=== PATIENT | male | born 1950 | race Caucasian/White ===

== ENCOUNTER → 2024-01-17 11:08 | Outpatient (REF) | payer MEDICARE, OTHER, SELFPAY | LOC: RCS 11:08 | PROVIDERS: ATTENDING PHYSICIAN Nuclear Medicine Nuclear Cardiology; FAMILY PHYSICIAN Physician Assistant Medical | DX: I48.0 Paroxysmal atrial fibrillation (principal); I10 Essential (primary) hypertension; R06.02 Shortness of breath | CPT/HCPCS: 93306; Q9957 ==

== ENCOUNTER → 2024-03-02 06:41 | Outpatient (REF) | payer MEDICARE, OTHER, SELFPAY ==
[2024-03-02 07:54] LABS: Blood Urea Nitrogen 20 mg/dl (9-20); Calcium 9.2 mg/dl (8.4-10.2); Carbon Dioxide 32 mmol/L (22-30); Chloride 102 mmol/L (98-107); Glucose 125 mg/dl (70-99); Sodium 140 mmol/L (135-145); eGFR > 60.00
== END ==
LOC: REG 06:41
PROVIDERS: ATTENDING PHYSICIAN Nuclear Medicine Nuclear Cardiology
DX: I48.0 Paroxysmal atrial fibrillation (principal)
CPT/HCPCS: 36415; 80048

== ENCOUNTER → 2024-06-25 06:19 | Outpatient (REF) | payer MEDICARE, OTHER, SELFPAY ==
[2024-06-25 08:16] LABS: ALT (SGPT) 18 U/L (0-50); AST (SGOT) 24 U/L (17-59); Albumin 4.1 g/dl (3.5-5.0); Alkaline Phosphatase 82 U/L (38-126); Blood Urea Nitrogen 20 mg/dl (9-20); Calcium 9.4 mg/dl (8.4-10.2); Carbon Dioxide 32 mmol/L (22-30); Chloride 97 mmol/L (98-107); Glucose 134 mg/dl (70-99); HDL Cholesterol 49 mg/dl; LDL Cholesterol, Calculated 95 mg/dl; Potassium 3.6 mmol/L (3.5-5.1); Sodium 139 mmol/L (135-145); Total Bilirubin 0.9 mg/dl (0.2-1.3); Total Cholesterol 171 mg/dl (50-199); Total Protein 6.7 g/dl (6.3-8.2); Triglyceride 136 mg/dl (10-149); Very Low Density Lipoprotein 27 mg/dl (0-30); eGFR > 60.00
== END ==
LOC: REG 06:19
PROVIDERS: ATTENDING PHYSICIAN Nuclear Medicine Nuclear Cardiology; FAMILY PHYSICIAN Physician Assistant Medical
DX: I10 Essential (primary) hypertension (principal); Z13.220 Encounter for screening for lipoid disorders
CPT/HCPCS: 36415; 80053; 80061

== ENCOUNTER → 2024-11-27 06:22 | Outpatient (REF) | payer MEDICARE, OTHER, SELFPAY ==
[2024-11-27 07:16] LABS: % Basophils 0.8 % (0-2); % Eosinophils 3.5 % (0-6); % Immature Granulocytes 0.3 % (0-0.5); % Lymphocytes 21.8 % (20.5-51.1); % Monocytes 12.9 % (1.7-9.3); % Neutrophils 60.7 % (42.2-75.2); Absolute Basophils 0.1 10^3/uL (0-0.2); Absolute Eosinophils 0.3 10^3/uL (0-0.7); Absolute Lymphocytes 1.6 10^3/uL (1.2-3.4); Absolute Neutrophils 4.5 10^3/uL (1.4-6.5); Hematocrit 48.4 % (39.0-52.0); Hemoglobin 16.3 g/dL (13.0-18.0); Mean Corp Hgb Conc. 33.7 g/dL (33.0-37.0); Mean Corpuscular Hgb 31.2 pg (27.0-31.0); Mean Corpuscular Volume 92.7 fL (80.0-94.0); Mean Platelet Volume 10.4 fL (7.4-10.4); Nucleated Red Blood Cells % 0 % (-); Platelet Count 244 10^3/uL (130-400); Red Blood Cell Count 5.22 10^6/uL (4.70-6.10); Red Cell Dist. Width 13.4 % (11.5-14.5); White Blood Cell Count 7.3 10^3/uL (4.8-10.8)
[2024-11-27 07:58] LABS: Free T4 1.06 ng/dl (0.78-2.19)
[2024-11-27 08:12] LABS: PSA, Total - Screen 3.09 ng/ml (0.0-4.0); TSH 4.83 uIU/ml (0.47-4.68)
[2024-11-27 08:34] LABS: Glycohemoglobin (HgbA1c) 6.3 % (4.0-5.6)
== END ==
LOC: REG 06:22
PROVIDERS: ATTENDING PHYSICIAN Physician Assistant Medical; OTHER PHYSICIAN Nuclear Medicine Nuclear Cardiology
DX: I10 Essential (primary) hypertension (principal); R73.01 Impaired fasting glucose; Z12.5 Encounter for screening for malignant neoplasm of prostate
CPT/HCPCS: 36415; 83036; 84439; 84443; 85025; G0103

== ENCOUNTER 2024-12-09 22:08 | Emergency (ER) | payer MEDICARE, OTHER, SELFPAY ==
[2024-12-09 22:15] VITALS: BP 164/104
[2024-12-10 01:16] VITALS: BP 150/90
[2024-12-10 03:46] VITALS: BP 148/88
--- NOTE | 2024-12-10 04:06 | ED.GENMED ---
History of Present Illness
General
Chief Complaint: Cough
Source: patient
Exam Limitations: none
Time Seen by Provider: 12/10/24 04:03
Nursing documentation reviewed up to this point in time: agreed with
History of Present Illness
History of Present Illness:
74 y/o male with a pmh of asthma, afib on xarelto, GERD, presents to the ER today with concerns of a cough for the past 3 days. He has associated post-nasal drip and intermittent shortness of breath. He has been using his albuterol inhaler at home
and claritin with minimal relief. He denies chest pain, nausea, vomiting, fevers, chills.
Past History
Past History
ED Past Medical History: Arrthythmia (Atrial fib), HTN and Other (Ulcers)
ED Past Surgical History: Cardiac (Ablation,) and Other (A. fib ablation, hernia repair)
Social History
Tobacco: Non-smoker
Alcohol: Occasional
Drug: None
Personal:
Living: with family
Review of Systems
Review of Systems
All Other Systems: ROS reviewed and negative except as documented in HPI and ROS
Phy Exam
Physical Exam
Physical Exam:
General: Patient is well appearing and in no acute distress; non-toxic
Skin: Warm and dry, no rashes or lesions
Head: Normocephalic, atraumatic
Eyes: Sclera non-icteric. EOMs intact.
Throat: No pharyngeal erythema, uvula midline
Cardiac: Regular rate and rhythm, no murmurs
Peripheral Vascular: No lower extremity swelling or edema
Pulm: Scattered wheezing heard bilaterally
Neuro: CN II-XII intact, no focal neurologic deficits.
Psychiatric: Appropriate mood and affect.
Course
Orders/Labs/Results
Orders:
Orders
12/09/24 22:18
EKG [Electrocardiogram (*1)] Urgent
Reason for Study: Shortness of Breath
EKG- Treatment ONCE
CR Chest - 2 Views Urgent
Comment:
Reason For Exam: Cough
12/10/24 04:17
Dexamethasone Sod Phosphate [Decadron] 10 mg IV NOW STA
Ipratropium/Albuterol Sulfate [Duoneb] 3 ml INH R NOW STA
12/10/24 04:18
COVID-19 Antigen Urgent
Source: Nasal Swab
Complete Blood Count/With Diff Urgent
Comprehensive Metabolic Panel Urgent
Influenza A+B Rapid Molecular Urgent
RYAN Source: Nasal Swab
Specimen Description:
Ipratropium/Albuterol Sulfate [Duoneb] 3 ml INH R NOW STA
12/10/24 05:23
pacemaker [Interrogate Pacemaker- Treatment] ONCE
Ipratropium/Albuterol Sulfate [Duoneb] 3 ml INH R NOW STA
Abnormal Lab Results
12/10/24
04:18
Absolute Lymphs (auto) 1.1 L 10^3/uL
(1.2-3.4)
Absolute Monos (auto) 1.3 H 10^3/uL
(0.1-0.6)
Immature Gran % 0.6 H %
(0-0.5)
Lymphocytes % 16.2 L %
(20.5-51.1)
Monocytes % 18.1 H %
(1.7-9.3)
Carbon Dioxide 33 H mmol/L
(22-30)
Glucose 145 H mg/dl
(70-99)
12/10/24 04:18
12/10/24 04:18
Vital Signs
Initial and Last Documented VS:
Initial Vital Signs
Temp Pulse Resp BP Pulse Ox
98.9 F 78 18 164/104 97
12/09/24 22:15 12/09/24 22:15 12/09/24 22:15 12/09/24 22:15 12/09/24 22:15
Last Documented Vital Signs
Temp Pulse Resp BP Pulse Ox
97.8 F 94 20 151/82 96
12/10/24 01:16 12/10/24 04:16 12/10/24 04:16 12/10/24 04:16 12/10/24 04:16
MDM/Problems Addressed
Differential Diagnosis Includes:
ddx include influenza, COVID-19, pneumonia, acute bronchitis, allergic rhinitis, asthma exacerbation
MDM/Problems Addressed:
74 y/o male with a pmh of asthma, afib on xarelto, GERD, presents to the ER today with concerns of a cough for the past 3 days. He has diffuse wheezing on exam. He tested positive for influenza b. His CXR shows no evidence of pneumonia. His symptoms
and lung sounds improved with duoneb treatments. He was given dose of decadron. He will be discharged on prednisone. Suspect asthma exacerbation secondary to influenza.
His ECG and telemetry did show PVCs. Pt does know he has a hx of this. They are asymptomatic. Pace maker eval negative for VT VF runs. Reviewed case with ER attending. Pt stable for discharge.
Chronic conditions affecting care:
asthma, afib
*Pulse Oximetry
Patient hypoxic: no
*EKG
Interpreted by ED Provider?: Yes
EKG Intrepretation Date: 12/10/24
Interpretation: abnormal
Comparison EKG: changes noted
Heart Rate: 80
Rate: normal
Rhythm: PVC's (atrial paced rhythm with frequent pvcs similar in appearance to prior ecgs)
*Critical Care Note
Total Time (30-74mins, 75-104mins- exclusive of procedures): Not Applicable
Data Reviewed
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
Source: patient
Patient Management
Escalation/DeEscalation of care consider admission/obs:
admit not indicated
ED Attending Note
-
Portions of this chart may have been created with voice recognition software.� Occasional wrong word or��sound alike� substitutions may have occurred due to the inherent limitations of voice recognition software.
Discharge Plan
Departure
Patient Disposition: Home (Routine Discharge)
Date of Disposition: 12/10/24
Time of Disposition: 06:27
Patient with high blood pressure during this ER visit?: Yes
Condition: Good
Discharge Problem:
Influenza B, Asthma exacerbation
Instructions: Flu in adults - Discharge instructions, Asthma in adults - Discharge instructions, BLOOD PRESSURE
Prescriptions:
New
prednisone 20 mg tablet
40 mg PO DAILY 5 Days Qty: 10 0RF
No Action
multivitamin Tablet
1 tab PO DAILY
docosahexaenoic acid-epa 1 CAP capsule
1 tab PO DAILY
famotidine 20 MG tablet
20 mg PO DAILY PRN (Reason: heartburn)
cetirizine [Zyrtec] 10 mg Tablet
10 mg PO DAILY PRN (Reason: seasonal allergies)
amiodarone [Pacerone] 200 mg Tablet
200 mg PO BID 30 Days Qty: 60 0RF
metoprolol succinate 25 mg Tablet Extended Release 24 Hr
25 mg PO BID 30 Days Qty: 60 0RF
Xarelto 20 mg Tablet
20 mg PO DAILY 30 Days Qty: 30 0RF
Referrals:
Kaitlyn Don PA-C [Family Provider] -
Activity Restrictions/Additional Instructions:
You tested positive for influenza A today.
Prednisone has been sent to your pharmacy. Please take 40 mg once daily for 5 days.
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
PLEASE RETURN EMERGENCY DEPARTMENT SHOULD YOU DEVELOP SHORTNESS OF BREATH, CHEST PAIN, LIGHTHEADEDNESS, DIZZINESS, PERSISTENT FEVERS OR CHILLS, OR ANY OTHER SIGNS OR SYMPTOMS WORRISOME TO YOU.
Interventions
Interventions:
*Risk Screen - Suicide Last Done: 12/09/24 22:17
*General Assessment Last Done: 12/09/24 22:17
*Neglect/Abuse Screening Last Done: 12/09/24 22:17
*ED- Fall Risk Assessment Last Done: 12/10/24 06:45
*ED COVID-19 Vaccine History Last Done: 12/09/24 22:17
*Nursing Disposition Last Done: 12/10/24 06:45
ED- Pulmonary Assessment Last Done: 12/10/24 05:00
Discharge Date and Time
Discharge Date/Time: 12/10/24 06:46
Print Language: TAJIK
[2024-12-10 04:16] VITALS: BP 151/82
[2024-12-10 04:20] VITALS: BMI 38.7
[2024-12-10] MEDS: DUONEB 3 ML INH ×3 (04:22→05:32)
[2024-12-10] MEDS: DECADRON 10 MG IV (04:23)
[2024-12-10 04:31] LABS: % Basophils 0.3 % (0-2); % Eosinophils 1.3 % (0-6); % Immature Granulocytes 0.6 % (0-0.5); % Lymphocytes 16.2 % (20.5-51.1); % Monocytes 18.1 % (1.7-9.3); % Neutrophils 63.5 % (42.2-75.2); Absolute Eosinophils 0.1 10^3/uL (0-0.7); Absolute Lymphocytes 1.1 10^3/uL (1.2-3.4); Absolute Monocytes 1.3 10^3/uL (0.1-0.6); Absolute Neutrophils 4.5 10^3/uL (1.4-6.5); Hematocrit 48.1 % (39.0-52.0); Hemoglobin 16.2 g/dL (13.0-18.0); Mean Corp Hgb Conc. 33.7 g/dL (33.0-37.0); Mean Corpuscular Hgb 30.8 pg (27.0-31.0); Mean Corpuscular Volume 91.4 fL (80.0-94.0); Nucleated Red Blood Cells % 0 % (-); Platelet Count 229 10^3/uL (130-400); Red Blood Cell Count 5.26 10^6/uL (4.70-6.10); Red Cell Dist. Width 13.9 % (11.5-14.5)
[2024-12-10 04:43] LABS: COVID-19 Antigen Negative (Negative)
[2024-12-10 04:54] LABS: ALT (SGPT) 34 U/L (0-50); AST (SGOT) 29 U/L (17-59); Albumin 4.5 g/dl (3.5-5.0); Alkaline Phosphatase 95 U/L (38-126); Blood Urea Nitrogen 15 mg/dl (9-20); Calcium 9.2 mg/dl (8.4-10.2); Carbon Dioxide 33 mmol/L (22-30); Chloride 100 mmol/L (98-107); Estimated Creatinine Clearance 71 ml/min; Glucose 145 mg/dl (70-99); Sodium 141 mmol/L (135-145); Total Bilirubin 0.8 mg/dl (0.2-1.3); Total Protein 7.3 g/dl (6.3-8.2); eGFR > 60.00
--- NOTE | 2024-12-10 05:23 | EDRN ---
Updated patient and on results, Hope, PA back in to re-assess patient as well.
== END 2024-12-10 06:46 | disposition home or self-care (01) ==
LOC: EMR 22:08
PROVIDERS: Physician Assistant; EMERGENCY PHYSICIAN Student in an Organized Health Care Education/Training Program; FAMILY PHYSICIAN Physician Assistant Medical
DX: J10.1 Influenza due to other identified influenza virus with other respiratory manifestations (principal); J45.901 Unspecified asthma with (acute) exacerbation; I48.91 Unspecified atrial fibrillation; K21.9 Gastro-esophageal reflux disease without esophagitis; I10 Essential (primary) hypertension; I49.3 Ventricular premature depolarization; Z79.01 Long term (current) use of anticoagulants; Z95.0 Presence of cardiac pacemaker
CPT/HCPCS: 99284; 96374; 94640; 71046; 80053; 85025; 87502; 87811; 93005